=== PATIENT | female | born 1940 | race Two or more races ===

== ENCOUNTER 2017-05-18 10:36 | Emergency (ER) | payer OTHER ==
[~2017-05-18] VITALS: Ht 152.4 cm; Wt 69.0 kg
[~2017-05-18 10:36] MED LIST: AMLODIPINE5 M1 PO; BENAZEPRIL HYDR20 M1 PO; LEVOTHYROXIN0.075 M2 PO
[2017-05-18 12:24] VITALS: BP 131/66
== END 2017-05-18 12:24 | disposition home or self-care (01) ==
LOC: ED 10:36
DX: S92.532A Displaced fracture of distal phalanx of left lesser toe(s), initial encounter for closed fracture (principal); E07.9 Disorder of thyroid, unspecified; I10 Essential (primary) hypertension; Z86.79 Personal history of other diseases of the circulatory system; W22.8XXA Striking against or struck by other objects, initial encounter; Y93.89 Activity, other specified; Y99.8 Other external cause status; Y92.89 Other specified places as the place of occurrence of the external cause

== ENCOUNTER 2017-08-01 11:29 | Emergency (ER) | payer OTHER ==
[2017-08-01 17:30] VITALS: BP 134/72
== END 2017-08-01 17:30 | disposition home or self-care (01) ==
LOC: ED 11:29
DX: S80.11XA Contusion of right lower leg, initial encounter (principal); I10 Essential (primary) hypertension; Z90.710 Acquired absence of both cervix and uterus; W01.0XXA Fall on same level from slipping, tripping and stumbling without subsequent striking against object, initial encounter; Y93.89 Activity, other specified; Y92.89 Other specified places as the place of occurrence of the external cause; Y99.8 Other external cause status
CPT/HCPCS: J1885; Q0092

== ENCOUNTER 2020-02-29 07:59 | Emergency (ER) | payer OTHER ==
[~2020-02-29] VITALS: Ht 152.4 cm; Wt 68.9 kg
[2020-02-29 08:21] VITALS: Ht 152.4 cm; Wt 68.9 kg
[2020-02-29 09:51] VITALS: BP 141/67
== END 2020-02-29 09:51 | disposition home or self-care (01) ==
LOC: ED 07:59
DX: S05.12XA Contusion of eyeball and orbital tissues, left eye, initial encounter (principal); S05.02XA Injury of conjunctiva and corneal abrasion without foreign body, left eye, initial encounter; R51 Headache; R07.89 Other chest pain; I10 Essential (primary) hypertension; W18.30XA Fall on same level, unspecified, initial encounter; Y93.89 Activity, other specified; Y92.89 Other specified places as the place of occurrence of the external cause; Y99.8 Other external cause status
CPT/HCPCS: Q0092